=== PATIENT | female | born 1980 | race African-American/Black ===

== ENCOUNTER 2024-02-21 00:48 | Emergency (ER) | payer OTHER ==
[~2024-02-21] VITALS: Ht 167.6 cm; Wt 60.0 kg
[2024-02-21 00:50] VITALS: BP 144/78; PULSE 89; RESP 16; TEMP 98; O2SAT 100
[2024-02-21] MEDS ORDERED: HYDROCODONE/ACETAMINOPHEN 5/325MG TABLET PO ONE (04:15)
[2024-02-21] MEDS ORDERED: IBUP-2029 MT (05:23)
[2024-02-21] MEDS ORDERED: METH-653 MT (05:23)
== END 2024-02-21 07:58 | disposition home or self-care (01) ==
LOC: ER 00:48
DX: S13.8XXA Sprain of joints and ligaments of other parts of neck, initial encounter (principal); V89.2XXA Person injured in unspecified motor-vehicle accident, traffic, initial encounter; Y93.89 Activity, other specified; Y92.89 Other specified places as the place of occurrence of the external cause; Y99.8 Other external cause status
CPT/HCPCS: 71045; 99284